=== PATIENT | female | born 1985 | race Caucasian/White ===

== ENCOUNTER 2017-04-18 23:04 | Emergency (ER) | payer MEDICAID ==
[2017-04-18 23:54] VITALS: BP 108/64
== END 2017-04-18 23:54 | disposition home or self-care (01) ==
LOC: ED 23:04
DX: J01.90 Acute sinusitis, unspecified (principal); R07.89 Other chest pain; E07.9 Disorder of thyroid, unspecified; M19.90 Unspecified osteoarthritis, unspecified site

== ENCOUNTER 2018-09-28 21:38 | Emergency (ER) | payer MEDICAID ==
[~2018-09-28] VITALS: Ht 157.5 cm; Wt 71.2 kg
[2018-09-28 21:44] VITALS: Ht 157.5 cm; Wt 71.2 kg
[2018-09-28 23:15] VITALS: BP 129/86
== END 2018-09-28 23:15 | disposition home or self-care (01) ==
LOC: ED 21:38
DX: M06.811 Other specified rheumatoid arthritis, right shoulder (principal)
CPT/HCPCS: J1885

== ENCOUNTER 2020-01-07 23:19 | Emergency (ER) | payer MEDICAID ==
[~2020-01-07] VITALS: Ht 157.5 cm; Wt 69.4 kg
[2020-01-07 23:35] VITALS: Ht 157.5 cm; Wt 69.4 kg
[2020-01-08 02:41] VITALS: BP 111/84
== END 2020-01-08 02:41 | disposition home or self-care (01) ==
LOC: ED 23:19
DX: H10.9 Unspecified conjunctivitis (principal); M06.9 Rheumatoid arthritis, unspecified